=== PATIENT | male | born 1980 | race Caucasian/White ===

== ENCOUNTER 2016-12-28 10:24 | Outpatient (CLI) | payer OTHER | END 2016-12-28 10:25 | disposition home or self-care (01) | DX: G47.30 Sleep apnea, unspecified (principal); G47.8 Other sleep disorders; R06.83 Snoring; G47.10 Hypersomnia, unspecified ==

== ENCOUNTER 2017-01-26 08:36 | Outpatient (CLI) | payer OTHER | END 2017-01-26 08:37 | DX: R53.83 Other fatigue (principal); R10.9 Unspecified abdominal pain ==

== ENCOUNTER 2017-01-27 14:48 | Outpatient (CLI) | payer OTHER | END 2017-01-27 14:49 | disposition home or self-care (01) | DX: R10.9 Unspecified abdominal pain (principal); R53.83 Other fatigue ==

== ENCOUNTER 2017-01-31 16:57 | Outpatient (CLI) | payer OTHER | END 2017-01-31 16:58 | disposition home or self-care (01) | DX: E29.1 Testicular hypofunction (principal); R53.83 Other fatigue ==

== ENCOUNTER 2017-02-16 09:15 | Outpatient (CLI) | payer OTHER | END 2017-02-16 09:16 | disposition home or self-care (01) | LOC: SC 09:15 | PROVIDERS: ATTEND Nurse Practitioner Family | DX: G47.33 Obstructive sleep apnea (adult) (pediatric) (principal) | CPT/HCPCS: 99212; 99214 ==

== ENCOUNTER 2017-04-19 08:42 | Outpatient (CLI) | payer OTHER | END 2017-04-19 08:43 | disposition home or self-care (01) | LOC: SC 08:42 | PROVIDERS: ATTEND Nurse Practitioner Family | DX: G47.33 Obstructive sleep apnea (adult) (pediatric) (principal) | CPT/HCPCS: 99212; 99214 ==

== ENCOUNTER 2017-05-31 08:39 | Outpatient (CLI) | payer OTHER | END 2017-05-31 08:40 | disposition home or self-care (01) | LOC: SC 08:39 | PROVIDERS: ATTEND Nurse Practitioner Family | DX: G47.33 Obstructive sleep apnea (adult) (pediatric) (principal) | CPT/HCPCS: 99212; 99214 ==

== ENCOUNTER 2017-08-30 08:40 | Outpatient (CLI) | payer OTHER | END 2017-08-30 08:41 | disposition home or self-care (01) | LOC: SC 08:40 | PROVIDERS: ATTEND Nurse Practitioner Family | DX: G47.33 Obstructive sleep apnea (adult) (pediatric) (principal) | CPT/HCPCS: 99212; 99214 ==

== ENCOUNTER 2021-05-19 16:02 | Outpatient (CLI) | payer OTHER | END 2021-05-19 16:03 | disposition home or self-care (01) | LOC: COV 16:02 | PROVIDERS: ATTEND Family Medicine | DX: Z20.822 Contact with and (suspected) exposure to COVID-19 (principal) ==

== ENCOUNTER 2023-04-13 08:42 | Outpatient (CLI) | payer OTHER ==
--- NOTE | 2023-04-13 09:30 | Sleep Patient Instructions ---
Sleep Center Visit Summary - Patient Visit Information Reason for Visit: Initial consult with patient currently on CPAP. - Patient Instructions Additional Instructions: You will continue with CPAP therapy with pressure set at 8-11 cmH2O. A supply prescription will be updated with your DME. We encourage you to continue to try to lose weight. Please follow up with the sleep care office in 1 year. - Clinic Information Contact: [facility] [address] [place] [address] [email or web address] T: [phone]
--- NOTE | 2023-04-13 09:40 | SLEEP CARE CONSULTATION ---
Information from patient questionnaire entered by Michelle Marshall. I have reviewed and concur with the information entered by Michelle Marshall. This document represents the service I personally performed and the decisions made by me, Lydia Mcdonald ARNP. History of Present Illness Service Date and Time: 04/13/2023 0842 Reason for Visit: New patient, Previously diagnosed sleep apnea, sleep apnea on CPAP therapy, Re-establish care Chief Complaint: reports: Fatigue, Frequent awakenings at night Date of Onset: 6 MONTHS Usual bedtime: 2230 Time it takes to fall asleep: COUPLE MIN Snores at night: Yes (WITHOUT CPAP) Observed to quit breathing while asleep: Yes Sleeps alone due to snoring: No Number of times waking at night: 2 Reasons for waking at night: reports: Choking Toss, Turn, or Twitch while sleeping: Yes Recalls having dreams: No Usually gets out of bed at: 4663-3495 Feels refreshed in the morning: No Morning headache: No Sleepy or fatigued during the day: Yes Ever fallen asleep while driving: No Takes day naps: Yes Dreams during day naps: No Prior sleep studies: Yes Year and Where: 2016 [facility] Additional HPI information: YVONNE OLIVARES was previously diagnosed to have mild, AHI 8, obstructive sleep apnea-hypopnea syndrome here at [facility] in 2017 and comes in today to re-establish care for CPAP therapy. - Parasomnia Symptoms Ever been unable to move upon waking from sleep: No Walks in sleep: No Talks in sleep: No Ever acted out dreams in sleep: No Ever felt weak in the knees when startled or emotional: No Bothered by creepy, crawly, restless sensations in legs: No Problems with memory or concentration: No CPAP Compliance Data - Data Reviewed with Patient Average duration of nightly device use: 5 hours 37 minutes Compliance rate %: 80 ( days used) Current pressure setting (cmH2O): 8-11 Humidity settin Heated hose settin Average residual AHI: 1.3 Average large leak: 40 secs Compliance data discussion: He has a Dreamstation 2 that was a replacement for recalled device. He has had it about 6 months to a year. He gets his supplies on [employer]. He is using a [employer]ics Anna View, medium cushion mask. He changes his cushion about every 2 weeks. 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 denies: aerophagia, mask discomfort, air blowing in eyes, mask leak noise, condensation in mask/hose, nasal congestion, dry mouth, nose, throat, epistaxis Observed to snore while using device: No Current pressure setting perceived as: comfortable On therapy, patient: reports: sleeping better, awakening more refreshed, being more awake and alert during the day, more rested overall. 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 Patient is and lives in [place]. Have you smoked in the past 12 months: Yes Cigarettes per day (20/pack): 4 Years of smokin Smoking Pack Years: 0.6 Alcohol use: No Caffeine use: Yes Caffeine amount and frequency: 1-2 DAILY Family History Family history of sleep disordered breathing: Yes Family Hx Sleep Apnea: Father: Snoring, Sleep apnea - Treated Allergies and Home Medications Known drug allergies: Yes (SULFA ANTIBI) Drug allergies reviewed: Yes Home medication list reviewed: Yes Allergy and home medication list: Medications: OTC Claritin, as needed Tylenol as needed Review of Systems Weight gain over past 5 years: fluctuates about 30 pounds Cardiovascular: denies: high blood pressure Respiratory: denies: shortness of breath Gastrointestinal: denies: heartburn Neurological: denies: headaches Psychiatric: denies: anxiety, depression Ear/Nose/Throat: reports: nasal congestion Immunologic: reports: sneezing Physical Exam Vital signs obtained and entered by: MICHELLE Benites MA Blood Pressure: 136/80 (LEFT ARM) Cuff size: regular Heart Rate: 84 O2 Saturation: 94 Height: 5 ft 10 in Weight: 253 lb (with clothes/shoes) Body Mass Index: 36.3 BMI Classification: Obese Neck circumference: 17.25 Heart: regular rate and rhythm Lungs: clear bilaterally Impression and Plan 1. Obstructive Sleep Apnea-Hypopnea Syndrome, mild, with good treatment compli ance and good apnea control. On CPAP therapy, the patient has better sleep quality and is more rested overall. He states in the last 6 months he is waking up at 0430 in the morning and not being able to get back to sleep. He just gets up and goes to work or works on his computer at home to not disturb or children. He would like to sleep until 0530 which has been his normal before this. He goes to sleep around 10 PM. His CPAP therapy seem to be working well and I do not see any problems which may be causing his early awakenings. He states he will just see if it resolves on its own. He used to get supplies from [employer] but stopped because his cost was just so high and he has been purchasing supplies online. He has changed insurance and would like to see if they cover more of the cost of his supplies. I will update his prescription at his last DME and he will find out from them costs of supplies. Patient has significant improvement of their sleep apnea and is satisfied with current CPAP therapy. Patient denies problems with oral dryness, nasal congestion, epistaxis, skin irritation or aerophagia. Patient's apnea severity and rationale for treatment to reduce apnea, improve sleep quality and reduce cardiovascular and cerebrovascular events was reviewed. 2. Obesity, unspecified. Currently patients BMI is 36.3. Obesity increases the risk of apnea, CPAP pressure requirements and overall health risks especially cardiovascular and diabetes. Thus patient is advised to lose weight. * Continue auto CPAP pressure at 8-11 cmH2O * Update supply prescription * Notify me if snoring with mask or feeling that the pressure is too much or too little * Attempt to lose weight * Call this office if any problems using CPAP * Return for follow up in 1 year, or sooner if concerns arise * Counseling Topics: Spare mask, Weight loss health impact Visit Type: In Office Time Spent with Patient (minutes): 39 Provider Statement: I spent 100% of the Face to Face Visit with the patient with greater than 50% spent counseling the patient and coordination of care.
[2023-04-13 09:52] VITALS: BP 136/80
== END 2023-04-13 08:43 | disposition home or self-care (01) ==
LOC: SC 08:42
PROVIDERS: ATTEND Nurse Practitioner Family
DX: G47.33 Obstructive sleep apnea (adult) (pediatric) (principal); E66.9 Obesity, unspecified; Z68.36 Body mass index [BMI] 36.0-36.9, adult; F17.210 Nicotine dependence, cigarettes, uncomplicated
CPT/HCPCS: 99203; 99212

== ENCOUNTER 2024-04-13 08:27 | Outpatient (CLI) | payer OTHER ==
--- NOTE | 2024-04-13 09:06 | Sleep Patient Instructions ---
Sleep Center Visit Summary - Patient Visit Information Reason for Visit: Annual follow-up - Patient Instructions Additional Instructions: You will continue with CPAP therapy with pressure set at 8-11 cmH2O. A supply prescription will be updated with your DME. We encourage you to continue to try to lose weight. Please follow up with the sleep care office in 1 year. - Clinic Information Contact: [facility] [address] [place] [address] [email or web address] T: [phone]
--- NOTE | 2024-04-13 09:12 | SLEEP CARE CONSULTATION ---
Information from patient questionnaire entered by Michelle Marshall. I have reviewed and concur with the information entered by Michelle Marshall. This document represents the service I personally performed and the decisions made by me, Lydia Mcdonald ARNP. History of Present Illness Service Date and Time: 04/13/2024826 Previous diagnosis: Mild, Obstructive Sleep Apnea-Hypopnea Syndrome AHI: 8 (2016) Reason for follow up: annual (LAST SEEN 04/2023) Accompanied by: Spouse (Cinda) Equipment type: CPAP (Daniel Dreamstation 2) Equipment obtained from: Other ([employer]) Mask style: Full face (Anna View) Backup mask available: Yes Last cushion change: 1-2 weeks ago Prior sleep studies: Yes Year and Where: 2016 [facility] HPI additional information: YVONNE OLIVARES was diagnosed to have mild, AHI 8, obstructive sleep apnea-hypopnea syndrome and returned today for CPAP therapy annual follow-up. 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 denies: aerophagia, mask discomfort, air blowing in eyes, mask leak noise, condensation in mask/hose, epistaxis Observed to snore while using device: No Current pressure setting perceived as: comfortable On therapy, patient: reports: sleeping better, awakening more refreshed, more rested overall. denies: drowsiness while driving Initial [place] Sleepiness Scale score: 5 (04/13/23) Current [place] Sleepiness Scale score: 5 Allergies and Home Medications Known drug allergies: Yes (as listed) Drug allergies reviewed: Yes Home medication list reviewed: Yes (no changes) Allergy and home medication list: Allergies Sulfa (Sulfonamide Antibiotics) Allergy (Verified 07/10/24 13:28) Home Medications Medication Instructions Recorded Confirmed Last Taken Type Loratadine/Pseudoephedrine See Rx Instructions .ROUTE .COMPLEX 04/13/23 04/13/24 Unknown History [Claritin-D 24 Hour Tablet] Review of Systems Review of systems same as previous: Yes (Covid 5-6 months ago) Physical Exam Vital signs obtained and entered by: Lydia Solis NP Blood Pressure: 133/83 Cuff size: long (left) Heart Rate: 75 O2 Saturation: 98 Height: 5 ft 10 in Weight: 251 lb 3.2 oz (with steel toe boots and clothes) Weight change since last visit: 2 lb loss Body Mass Index: 36.0 BMI Classification: Obese Impression and Plan 1. Obstructive Sleep Apnea-Hypopnea Syndrome, mild, with good treatment compliance and good apnea control. On CPAP therapy, the patient has better sleep quality and is more rested overall. He says he wakes up about 330 and cannot go back to sleep so he gets up for the day. He normally wakes up feeling rested but by the end of the day he is pretty tired. In last 3-4 months he is twitching in his sleep, his hand or arm. In the last month, his says he will be "shuttering" as well for about 30 seconds. This is happening 2-3 times a week. He says this twitching is not waking him up. He is waking up early, does not make it to his alarm at 0630. He gets up 3:30 to 4 AM and is exhausted by 8 PM and will fall asleep in front of TV. His says he takes a 2 hour nap about 7-8 PM and then he will wake up at 10 PM and goes to bed. I advised patient to try not to take a nap or just go straight to bed to try and get more than 6 hours of sleep. You may also try taking melatonin 5 mg nightly to see if this will help reduce his twitching in his sleep. Most people require 7-9 hours of sleep for optimal mental and physical function. Less than 5-6 hours of sleep consistently can contribute to health risks and mortality. Thus patient is advised to strive for a minimum of 7 hours of sleep. He voiced understanding. Patient's apnea severity and rationale for treatment to reduce apnea, improve sleep quality and reduce cardiovascular and cerebrovascular events was reviewed. 2. Obesity, unspecified. Currently patients BMI is 36. Obesity increases the risk of apnea, CPAP pressure requirements and overall health risks especially cardiovascular and diabetes. Thus patient is advised to lose weight. * Continue auto CPAP pressure at 8-11 cmH2O * Update supply prescription. * Notify me if snoring with mask or feeling that the pressure is too much or too little * Attempt to lose weight * Call this office if any problems using CPAP * Return for follow up in 12 months, or sooner if concerns arise Counseling Topics: Spare mask, Weight loss health impact Prescriptions: Device supplies Follow up with Sleep Care in: 1 year Visit Type: In Office Time Spent with Patient (minutes): 23 Provider Statement: I spent 100% of the Face to Face Visit with the patient with greater than 50% spent counseling the patient and coordination of care.
[2024-04-13 09:17] VITALS: BP 133/83; O2SAT 98
== END 2024-04-13 08:28 | disposition home or self-care (01) ==
LOC: SC 08:27
PROVIDERS: ATTEND Nurse Practitioner Family
DX: G47.33 Obstructive sleep apnea (adult) (pediatric) (principal); E66.9 Obesity, unspecified; Z68.36 Body mass index [BMI] 36.0-36.9, adult
CPT/HCPCS: 99212; 99213